=== PATIENT | male | born 1955 | race Caucasian/White ===

== ENCOUNTER → 2021-02-03 13:11 | Outpatient (CLI) | payer MEDICARE, SELFPAY ==
--- NOTE | 2021-02-03 13:17 | DI.RAD.S_ITS ---
PROCEDURE: XR KNEE LT 3V INDICATIONS: L knee direct trauma, TTP patella, laceration TECHNIQUE: 3 views of the knee were acquired. COMPARISON: None. FINDINGS: Bones: There is no fracture. Alignment is normal. The joint spaces appear maintained on these nonweightbearing views. Minimal patellofemoral degenerative spurring. Soft tissues: No significant joint effusion although examination is somewhat limited given obliquity of the lateral view. There is mild soft tissue prominence of the prepatellar soft tissues. IMPRESSION: No acute osseous abnormality. Dictated by: Clemente Rodriguez D.O. on 02/03/2021 at 13:14 Approved by: Clemente Rodriguez D.O. on 02/03/2021 at 13:16
== END ==
PROVIDERS: Referring Provider Physician Assistant; Visit Provider Physician Assistant
DX: S89.92XA Unspecified injury of left lower leg, initial encounter (principal); X58.XXXA Exposure to other specified factors, initial encounter
CPT/HCPCS: 73562

== ENCOUNTER → 2021-02-17 13:45 | Outpatient (CLI) | payer MEDICARE, SELFPAY | PROVIDERS: Visit Provider Physician Assistant | DX: S81.012A Laceration without foreign body, left knee, initial encounter (principal) | CPT/HCPCS: 87070; 87075; 87205 ==

== ENCOUNTER → 2022-02-27 14:53 | Outpatient (CLI) | payer MEDICARE, SELFPAY | PROVIDERS: Referring Provider Ophthalmology; Visit Provider Ophthalmology | DX: H16.221 Keratoconjunctivitis sicca, not specified as Sjogren's, right eye (principal) | CPT/HCPCS: 87070; 87205 ==

== ENCOUNTER 2023-06-15 12:15 | Emergency (ER) | payer MEDICARE, SELFPAY ==
[2023-06-15 12:29] VITALS: BP 138/70; PULSE 48; RESP 16; TEMP 36.7; O2SAT 100; BMI 21.7
[2023-06-15] MEDS: OXYCODONE/ACETAMINOPHEN 5/325 TABLET 1 TAB PO (15:50)
[2023-06-15] MEDS: CYCLOBENZAPRINE 10 MG TABLET PO (15:51)
--- NOTE | 2023-06-15 15:52 | ED_ITS ---
HPI - Back Pain/Injury <Yani Fraire PA-C - Last Filed: 06/15/23 15:57> General Chief Complaint: Back Pain/Injury Stated Complaint: pain in L/hip and back Time Seen by Provider: 06/15/23 14:56 Source: patient History of Present Illness HPI Narrative: 67-year-old male with no reported past medical history presents to the ED with 1 day of left-sided lower back pain which radiates down to the left front leg. Patient states that he did some work at home lifting heavy rocks last week, thought that he tweaked his back, however his pain really worsened this morning upon awakening. Patient denies numbness, tingling, weakness. Patient denies saddle paresthesias, urinary hesitancy, urinary in continence, bowel incontinence. Patient is allergic to ibuprofen, breaks out into an all-over rash with it. Related Data Previous Rx's Medication Instructions Recorded mupirocin 2 % topical ointment 1 applic topical BID #30 grams 02/17/21 cyclobenzaprine 10 mg tablet 10 mg PO TID PRN muscle spasm 5 06/15/23 days #15 tabs oxycodone-acetaminophen 5 mg-325 1 tab PO Q6H PRN pain 3 days #12 06/15/23 mg tablet (Percocet) tabs Allergies Allergy/AdvReac Type Severity Reaction Status Date / Time ibuprofen Allergy Intermediate All over Verified 06/15/23 12:33 body itching Penicillins Allergy Unknown unknown Verified 06/15/23 12:33 Review of Systems <Yani Fraire PA-C - Last Filed: 06/15/23 15:57> Review of Systems ROS Unobtainable: All systems reviewed & are unremarkable except as noted in HPI and below Constitutional Constitutional: Denies chills, Denies fatigue, Denies fever(s), Denies frequent falls, Denies lethargy and Denies weakness Eyes Eyes: Denies change in vision, Denies eye discharge, Denies irritation and Denies loss of vision ENT Ears, Nose, Mouth, and Throat: Denies change in voice, Denies dizziness, Denies neck pain, Denies sore throat and Denies throat swelling Cardiovascular Cardiovascular: Denies chest pain, Denies irregular heart rhythm, Denies lightheadedness, Denies palpitations, Denies dyspnea, Denies dyspnea on exertion and Denies orthopnea Respiratory Respiratory: Denies cough, Denies dyspnea, Denies dyspnea on exertion and Denies wheezing Gastrointestinal Gastrointestinal: Denies abdominal pain, Denies change in bowel habits, Denies diarrhea, Denies nausea and Denies vomiting Genitourinary Genitourinary: Denies hematuria, Denies flank pain, Denies urinary incontinence and Denies urinary urgency Musculoskeletal Musculoskeletal: Reports back pain, Denies muscle weakness, Denies neck pain, Denies numbness, Reports radiating pain into limb and Denies tingling Integumentary/Breasts Skin/Breast: Denies pruritus, Denies erythema, Denies rash and Denies wounds Neurologic Neurologic: Denies behavioral changes, Denies confusion, Denies dizziness, Denies frequent falls, Denies loss of vision, Denies numbness, Denies tingling and Denies weakness Psychiatric Psychiatric: Denies anxiety, Denies behavioral changes, Denies confusion, Denies depression, Denies homicidal ideation and Denies suicidal ideation Endocrine Endocrine: Denies fatigue, Denies flushing and Denies palpitations Hematologic/Lymphatic Hematologic/Lymphatic: Denies easy bruising Allergic/Immunologic Allergic/Immunologic: Denies urticaria, Denies throat swelling and Denies wheezing Patient History <Yani Fraire PA-C - Last Filed: 06/15/23 15:57> Social History Smoking Status: Never smoker Smoking Status: Never smoker alcohol intake frequency: 0-2 drinks per day Substance Use Type: does not use Exam <Yani Fraire PA-C - Last Filed: 06/15/23 15:57> Narrative Exam Narrative: Const General:?cooperative, healthy appearing and comfortable [facility] Head:?normal to inspection Ears:?hearing grossly normal bilaterally Nose:?external nose normal Face and sinus:?normal facial exam and sinuses nontender Mouth:?oral mucosae normal Throat:?posterior oropharynx normal Eyes General:?appearance normal, both eyes and all related structures Neck Neck:?normal visual inspection and no lymphadenopathy noted Resp Effort & Inspection:?normal respiratory effort Auscultation:?clear to auscultation bilaterally Cardio Rate:?regular rate Rhythm:?regular rhythm Musculoskeletal No midline tenderness to palpation. No paraspinal tenderness to palpation. No bruising, deformities. Strength and sensation is intact. There is full range of motion. Gait is normal. Neuro General:?patient alert, patient awake and patient oriented x3 Initial Vital Signs Initial Vital Signs: Vital Signs Temperature 98.1 F 06/15/23 12:29 Pulse Rate 48 L 06/15/23 12:29 Respiratory Rate 16 06/15/23 12:29 Blood Pressure 138/70 06/15/23 12:29 Pulse Oximetry 100 06/15/23 12:29 Oxygen Delivery Method Room Air 06/15/23 12:29 <Dionna Haywood DO - Last Filed: 06/16/23 07:48> Initial Vital Signs Initial Vital Signs: Vital Signs Temperature 98.1 F 06/15/23 12:29 Pulse Rate 48 L 06/15/23 12:29 Respiratory Rate 16 06/15/23 12:29 Blood Pressure 138/70 06/15/23 12:29 Pulse Oximetry 100 06/15/23 12:29 Oxygen Delivery Method Room Air 06/15/23 12:29 Course <Yani Fraire PA-C - Last Filed: 06/15/23 15:57> Orders Ordered: Discontinued Medications Cyclobenzaprine HCl (Cyclobenzaprine 10 Mg Tablet) 10 mg PO NOW ONE Stop: 06/15/23 15:46 Last Admin: 06/15/23 15:51 Dose: 10 mg Documented By: JOSE Oxycodone/Acetaminophen (Oxycodone/Acetaminophen 5/325 Tablet) 1 tab PO NOW ONE Stop: 06/15/23 15:46 Last Admin: 06/15/23 15:50 Dose: 1 tab Documented By: JOSE Vital Signs Vital signs: Vital Signs - 8 hr 06/15/23 12:29 Temperature 98.1 F Pulse Rate 48 L Respiratory Rate 16 Blood Pressure 138/70 Pulse Oximetry 100 Oxygen Delivery Method Room Air <Dionna Haywood DO - Last Filed: 06/16/23 07:48> Orders Ordered: Discontinued Medications Cyclobenzaprine HCl (Cyclobenzaprine 10 Mg Tablet) 10 mg PO NOW ONE Stop: 06/15/23 15:46 Last Admin: 06/15/23 15:51 Dose: 10 mg Documented By: JOSE Oxycodone/Acetaminophen (Oxycodone/Acetaminophen 5/325 Tablet) 1 tab PO NOW ONE Stop: 06/15/23 15:46 Last Admin: 06/15/23 15:50 Dose: 1 tab Documented By: JOSE Vital Signs Vital signs: Vital Signs - 8 hr 06/15/23 12:29 Temperature 98.1 F Pulse Rate 48 L Respiratory Rate 16 Blood Pressure 138/70 Pulse Oximetry 100 Oxygen Delivery Method Room Air MDM - Back Pain/Injury <Yani Fraire PA-C - Last Filed: 06/15/23 15:57> MDM Narrative Medical decision making narrative: 67-year-old male with no reported past medical history presents to the ED with 1 day of left-sided lower back pain which radiates down to the left front leg. Symptoms are likely due to a musculoskeletal sprain/strain versus disc herniation versus other. Physical exam and history are reassuring for no acute spinal emergency, no imaging indicated at the moment. Will treat symptoms with Percocet, Flexeril. Recommend follow-up with PCP for further evaluation. ED return precautions discussed with patient. Patient verbalized understanding. Medical records reviewed: Yes Discharge Plan Departure Patient Disposition: Home Clinical Impression: Back pain Instructions: DI for Low Back Pain Activity Restrictions/Additional Instructions: You were evaluated in the ED today for lower back pain. Your symptoms are likely due to a musculoskeletal sprain/strain or a herniated disc. You are being prescribed Percocet and Flexeril for your symptoms. Please follow-up with the PCP as soon as possible for further evaluation. Please return to the ED if you have worsening symptoms, numbness, tingling, weakness, urinary difficulties. Prescriptions: New cyclobenzaprine 10 mg tablet 10 mg PO TID PRN (Reason: muscle spasm) 5 Days Qty: 15 0RF oxycodone-acetaminophen [Percocet] 5-325 mg tablet 1 tab PO Q6H PRN (Reason: pain) 3 Days Qty: 12 0RF No Action mupirocin 2 % ointment 1 applic topical BID Qty: 30 0RF Referrals: Miscellaneous,Doctor, MD [Primary Care Provider] - Stand Alone Forms: Patient Portal/API <Dionna Haywood DO - Last Filed: 06/16/23 07:48> Cosign ED Attending Selina Attestation: I was immediately available in the department for consultation. Documentation has been reviewed.
== END 2023-06-15 15:54 | disposition home or self-care (01) ==
PROVIDERS: Emergency Provider Student in an Organized Health Care Education/Training Program
DX: M54.50 Low back pain, unspecified (principal)
CPT/HCPCS: 99283

== ENCOUNTER 2023-06-16 08:06 | Emergency (ER) | payer MEDICARE, SELFPAY ==
[2023-06-16 08:16] VITALS: BP 180/75; PULSE 51; RESP 18; TEMP 36.7; O2SAT 100; BMI 21.7
--- NOTE | 2023-06-16 08:22 | DI.RAD.S_ITS ---
PROCEDURE: XR HIP W PEL IF DONE LT 2V INDICATIONS: hip pain. TECHNIQUE: AP pelvis with lateral view(s) of the left hip(s). 3 images. COMPARISON: None. FINDINGS: Bones: No fractures or dislocations. Pelvic ring appears intact. No suspicious bony lesions. Moderate bilateral hip DJD. Acetabular roof sclerosis. No a vascular necrosis of the left femoral head. Bridging osteophyte at the pubic symphysis. Soft tissues: The visualized bowel gas pattern is normal. No suspicious soft tissue calcifications. IMPRESSION: No acute osseous abnormality. Moderate bilateral hip DJD. Dictated by: Scott Guillen M.D. on 06/16/2023 at 9:37 Approved by: Scott Guillen M.D. on 06/16/2023 at 9:38
[2023-06-16 09:32] VITALS: BP 150/72; PULSE 50; O2SAT 100
--- NOTE | 2023-06-16 10:25 | ED.EXTPRO ---
HPI - Extremity Problem General Chief complaint: Extremity Problem,Nontraumatic Stated complaint: Here T-1/ hip pain not getting better getting wors Time Seen by Provider: 06/16/23 10:24 Source: patient Mode of arrival: Family Vehicle History of Present Illness HPI Narrative: Patient 67-year-old male without past medical history presenting for the 2nd time with ongoing left leg pain. Seen evaluated yesterday diagnosed with sciatica given Percocet and Flexeril. He reports that for the last day he is had pain in the left leg it radiates anteriorly down to his toes. He is no changes in bowel or bladder habits. He reports that is difficult to ambulate because he can not fully straighten his leg. He thinks last week he was lifting heavy rocks when he maybe hurt his back but the legs did not really start hurting until this week. He is not had any relief with medications given yesterday. He is allergic to ibuprofen because it causes itching but no sign of anaphylaxis. He is had any fever. He is currently in a wheelchair but can actually stand up in the room for me. He has urinated gone to the bathroom here. Related Data Previous Rx's Medication Instructions Recorded mupirocin 2 % topical ointment 1 applic topical BID #30 grams 02/17/21 cyclobenzaprine 10 mg tablet 10 mg PO TID PRN muscle spasm 5 06/15/23 days #15 tabs oxycodone-acetaminophen 5 mg-325 1 tab PO Q6H PRN pain 3 days #12 06/15/23 mg tablet (Percocet) tabs gabapentin 300 mg capsule 300 mg PO BEDTIME #30 caps 06/16/23 prednisone 20 mg tablet 40 mg PO DAILY #10 tabs 06/16/23 Allergies Allergy/AdvReac Type Severity Reaction Status Date / Time ibuprofen Allergy Intermediate All over Verified 06/15/23 12:33 body itching Penicillins Allergy Unknown unknown Verified 06/15/23 12:33 Review of Systems Review of Systems ROS Unobtainable: All systems reviewed & are unremarkable except as noted in HPI and below Patient History Social History Smoking Status: Never smoker Smoking Status: Never smoker alcohol intake frequency: 0-2 drinks per day Substance Use Type: does not use Exam Initial Vital Signs Initial Vital Signs: Vital Signs Temperature 98.1 F 06/16/23 08:16 Pulse Rate 51 L 06/16/23 08:16 Respiratory Rate 18 06/16/23 08:16 Blood Pressure 180/75 H 06/16/23 08:16 Pulse Oximetry 100 06/16/23 08:16 Oxygen Delivery Method Room Air 06/16/23 08:16 GENERAL: Alert pleasant 67-year-old male CARDIOVASCULAR: peripheral pulses in tact, cap refill <2 sec RESPIRATORY: No respiratory distress, speaks in full sentences without difficulty BACK: No vertebral tenderness no pain and buttock able to stand, can find a position of comfort EXTREMITIES: Normal range of motion, no clubbing or edema. Neurovascularly intact NEUROLOGICAL: Cranial nerves II through XII grossly intact. Normal gait and speech. SKIN: Warm, dry, no petechiae, no rashes or lesions. Course Orders Ordered: Discontinued Medications Gabapentin (Gabapentin 300 Mg Capsule) 300 mg PO NOW ONE Stop: 06/16/23 10:40 Last Admin: 06/16/23 10:49 Dose: 300 mg Documented By: AMV Prednisone (Prednisone 20 Mg Tablet) 40 mg PO NOW ONE Stop: 06/16/23 10:40 Last Admin: 06/16/23 10:49 Dose: 40 mg Documented By: AMV Vital Signs Vital signs: Vital Signs - 8 hr 06/16/23 08:16 06/16/23 09:32 Temperature 98.1 F Pulse Rate 51 L 50 L Respiratory Rate 18 Blood Pressure 180/75 H 150/72 H Pulse Oximetry 100 100 Oxygen Delivery Method Room Air Room Air MDM - Extremity (Nontraumatic) MDM Narrative Medical decision making narrative: At this time patient has signs symptoms and history consistent with sciatica like pain. Discussed with him pain management and conservative measures only. No need for an emergent MRI today. However if pain is continuing he may require outpatient MRI and outpatient physical therapy. Can not have ibuprofen due to allergy we talked about Toradol but ultimately decide for prednisone. Will add course of prednisone and gabapentin. Discussed strict return precautions with him. Discharge Plan Departure Patient Disposition: Home Clinical Impression: Sciatica Instructions: Sciatica (Alternative Therapy), DI for Back Pain With Sciatica Activity Restrictions/Additional Instructions: *You have been diagnosed with back pain with sciatica *What to do: At this time increase activity as tolerated heating pad. You may require outpatient MRI and/or physical therapy *Continue to take medications as directed Continue Flexeril and pain medication as prescribed Prednisone 40 mg once a day for 5 days Gabapentin 300 mg at nighttime which can be titrated up as needed please discuss with your PCP (this can cause drowsiness) *Follow up with your primary care provider in 2-3 days or call [phone] *Return to ER if you should have increasing leg weakness loss of urine or stool, or any new, worsening or concerning symptoms Prescriptions: New prednisone 20 mg tablet 40 mg PO DAILY Qty: 10 0RF gabapentin 300 mg capsule 300 mg PO BEDTIME Qty: 30 0RF No Action mupirocin 2 % ointment 1 applic topical BID Qty: 30 0RF cyclobenzaprine 10 mg tablet 10 mg PO TID PRN (Reason: muscle spasm) 5 Days Qty: 15 0RF oxycodone-acetaminophen [Percocet] 5-325 mg tablet 1 tab PO Q6H PRN (Reason: pain) 3 Days Qty: 12 0RF Referrals: Miscellaneous,Doctor, [Primary Care Provider] - Stand Alone Forms: Patient Portal/API
[2023-06-16] MEDS: predniSONE 20 MG TABLET 40 MG PO (10:49)
[2023-06-16] MEDS: GABAPENTIN 300 MG CAPSULE PO (10:49)
== END 2023-06-16 11:04 | disposition home or self-care (01) ==
PROVIDERS: Emergency Provider Emergency Medicine
DX: M54.42 Lumbago with sciatica, left side (principal)
CPT/HCPCS: 73502; 99283

== ENCOUNTER → 2023-08-24 12:15 | Outpatient (CLI) | payer MEDICARE, SELFPAY ==
--- NOTE | 2023-08-24 12:17 | DI.RAD.S_ITS ---
PROCEDURE: XR LUMBAR SPINE 2-3V INDICATIONS: sciatica TECHNIQUE: 3 views of the lumbar spine were acquired. COMPARISON: None. FINDINGS: Bones: 5 [id number] vertebrae are present. There is normal bony alignment. Degenerative endplate changes and bilateral facet arthrosis throughout lumbar spine more notably at L3-4 through L5-S1 levels are seen. No vertebral body compression fractures. No suspicious bony lesions. Soft tissues: Overlying bowel gas pattern is normal. No suspicious soft tissue calcifications. IMPRESSION: Degenerative disc disease throughout lumbar spine more notably at L3-4 through L5-S1 levels. No acute compression fracture or significant spondylolisthesis. Dictated by: Jaylon Putnam M.D. on 08/24/2023 at 13:19 Approved by: Jaylon Putnam M.D. on 08/24/2023 at 13:20
== END ==
PROVIDERS: Family Provider Family Medicine; PCP Family Medicine; Referring Provider Family Medicine; Visit Provider Family Medicine
DX: M51.16 Intervertebral disc disorders with radiculopathy, lumbar region (principal); M51.17 Intervertebral disc disorders with radiculopathy, lumbosacral region
CPT/HCPCS: 72100

== ENCOUNTER → 2023-09-04 12:45 | Outpatient (CLI) | payer MEDICARE, SELFPAY ==
--- NOTE | 2023-09-04 12:46 | DI.MRI.S_ITS ---
PROCEDURE: MR LUMBAR SPINE WO CON INDICATIONS: Low back pain w/L side sciatica, no improvement w/PT TECHNIQUE: Noncontrast sagittal T1 spin echo and T2 fast echo, sagittal STIR, and T2 fast spin echo through the lumbar spine. In cases with scoliosis, additional coronal T2 fast spin echo may be performed. COMPARISON: [facility], CR, XR LUMBAR SPINE 2-3V, 08/24/2023, 12:35. FINDINGS: Image quality: This examination is limited by involuntary motion artifact. Alignment and Curvature: There is minimal retrolisthesis seen at the L5-S1 level. Bone Marrow: Marrow is of normal overall signal. No acute vertebral body compression fractures. Spinal Cord: Conus medullaris terminates at the L1-L2 level. Visualized cord demonstrates normal signal and size. Paraspinous Soft Tissues: No paravertebral masses. T12-L1: Normal appearance. L1-L2: Normal appearance. L2-L3: The disc height and disk signal are relatively well-preserved. Mild to moderate disc bulge is seen, with a central disc protrusion. There is a focal annular fissure seen posteriorly. Mild bilateral neural foraminal narrowing is seen. Mild central canal narrowing is seen. L3-L4: The disc height is well-preserved. Loss of disc signal is seen at this level. Moderate generalized disc bulge is seen. There is a superimposed central disc protrusion. There is a focal annular fissure seen posteriorly. Mild facet joint hypertrophy is seen. Moderate bilateral neural foraminal narrowing is seen. Moderate central canal narrowing is seen. L4-L5: The disc height is well-preserved. Loss of disc signal is seen at this level. Moderate generalized disc bulge is seen. There is a central/left disc protrusion seen. There is extruded component seen into the left neural foramen, as on series 3, image 14 and on series 5, image 25. There is severe left-sided and moderate to severe right-sided neural foraminal narrowing. There is a degree of compression seen upon the exiting nerve roots. Moderate central canal narrowing is seen. L5-S1: The disc height is well-preserved. Loss of disc signal is seen at this level. Moderate generalized disc bulge is seen. There is a superimposed central disc protrusion. There is a focal annular fissure seen posteriorly. Mild to moderate facet hypertrophy is seen. Moderate bilateral neural foraminal narrowing is seen. No central canal narrowing is seen. IMPRESSION: At the L4-L5 level, there is a disc extrusion seen into the left neural foramen, with severe central canal narrowing and mass effect upon the exiting left L4 nerve root. Milder degenerative changes are seen elsewhere. Several sites of significant neural foraminal narrowing can be seen, with associated exiting nerve root compression. Annular fissures are seen posteriorly at the L2-L3, L3-L4, and L5-S1 levels. Dictated by: Josef Guzman M.D. on 09/04/2023 at 17:38 Approved by: Josef Guzman M.D. on 09/04/2023 at 17:41
== END ==
PROVIDERS: Family Provider Family Medicine; PCP Family Medicine; Referring Provider Family Medicine; Visit Provider Family Medicine
DX: M51.16 Intervertebral disc disorders with radiculopathy, lumbar region (principal); M51.17 Intervertebral disc disorders with radiculopathy, lumbosacral region; M47.26 Other spondylosis with radiculopathy, lumbar region; M47.27 Other spondylosis with radiculopathy, lumbosacral region; M48.061 Spinal stenosis, lumbar region without neurogenic claudication; M48.07 Spinal stenosis, lumbosacral region
CPT/HCPCS: 72148

== ENCOUNTER → 2023-11-05 12:11 | Outpatient (CLI) | payer MEDICARE, SELFPAY ==
--- NOTE | 2023-11-05 12:14 | DI.RAD.S_ITS ---
PROCEDURE: XR FOOT RT MIN 3V INDICATIONS: Right 1st MTP pain TECHNIQUE: 3 views of the foot were acquired. COMPARISON: None. FINDINGS: Bones: No fractures or dislocations. No suspicious bony lesions. Mild to moderate degenerative changes are present at the 1st TMT joint and the interphalangeal joints. There is mild calcaneal spurring. Soft tissues: No tibiotalar joint effusion. Achilles tendon appears normal. IMPRESSION: Degenerative change. No acute bony abnormality. If pain persists, followup imaging in 5-7 days is recommended to exclude occult fracture. Dictated by: Joyce Sadler M.D. on 11/05/2023 at 13:50 Approved by: Joyce Sadler M.D. on 11/05/2023 at 13:53
== END ==
LOC: RAD 12:13
PROVIDERS: Family Provider Family Medicine; PCP Family Medicine; Referring Provider Anesthesiology; Visit Provider Anesthesiology
DX: M79.671 Pain in right foot (principal)
CPT/HCPCS: 73630

== ENCOUNTER → 2025-01-13 12:13 | Outpatient (CLI) | payer MEDICARE, OTHER, SELFPAY ==
[2025-01-13 12:49] LABS: Hematocrit 43.1 % (41-53); Hemoglobin 14.3 g/dL (13.5-17.5); Mean Corpuscular HGB Conc 33.2 % (30-36); Mean Corpuscular Volume 90.4 fL (80-100); Platelet Count 175 X10^3/uL (150-400); Red Blood Cell Count 4.77 X10^6/uL (4.5-5.9); Red Cell Distribution Width 13.6 % (11.6-14.8); White Blood Cell Count 4.4 X10^3/uL (4.5-11.0)
[2025-01-13 13:09] LABS: Alanine Aminotransferase 44 IU/L (<50); Albumin 4.9 g/dL (3.5-5.0); Alkaline Phosphatase 38 U/L (38-126); Aspartate Aminotransferase 57 IU/L (17-59); Bilirubin Total 1.4 mg/dL (0.2-1.3); Blood Urea Nitrogen 20 mg/dL (9-20); Calcium 9.9 mg/dL (8.4-10.2); Carbon Dioxide 27 mmol/L (22-32); Chloride 103 mmol/L (98-107); Cholesterol 227 mg/dL (140-199); Estimated Glomerular Filt Rate > 60 mL/min (>60); Globulin 2.5 g/dL (1.7-4.1); Glucose 102 mg/dL (80-110); HDL Cholesterol 96 mg/dL (40-60); HEMOLYSIS < 15 (0-50); LDL Cholesterol Calculated 118 mg/dL (<100); Potassium 4.7 mmol/L (3.4-5.1); Sodium 137 mmol/L (137-145); Total Protein 7.4 g/dL (6.3-8.2); Triglycerides 65 mg/dL (35-150)
[2025-01-13 13:41] LABS: Prostate Specific Antigen Scrn 0.776 ng/mL (0.1-4.0)
[2025-01-14 16:40] LABS: Hep C Virus Ab w/Reflex Quant REACTIVE s/c (NEGATIVE)
== END ==
PROVIDERS: Family Provider Family Medicine; PCP Family Medicine; Referring Provider Family Medicine; Visit Provider Family Medicine
DX: E87.8 Other disorders of electrolyte and fluid balance, not elsewhere classified (principal); Z13.220 Encounter for screening for lipoid disorders; Z12.5 Encounter for screening for malignant neoplasm of prostate; Z13.9 Encounter for screening, unspecified; Z11.59 Encounter for screening for other viral diseases
CPT/HCPCS: 36415; 80053; 80061; 85027; 86803; 87522; G0103

== ENCOUNTER → 2025-03-24 12:31 | Outpatient (CLI) | payer MEDICARE, OTHER, SELFPAY | PROVIDERS: Family Provider Family Medicine; PCP Family Medicine; Referring Provider Family Medicine; Visit Provider Nurse Practitioner Family | DX: J02.9 Acute pharyngitis, unspecified (principal) | CPT/HCPCS: 87070; 87880 ==